=== PATIENT | male | born 1955 ===

== ENCOUNTER 2021-03-01 07:55 | Outpatient (CLI) | payer OTHER | END 2021-03-01 07:59 | disposition home or self-care (01) | LOC: NUCLEAR 07:55 | PROVIDERS: ATTEND Internal Medicine Cardiovascular Disease | DX: I25.10 Atherosclerotic heart disease of native coronary artery without angina pectoris (principal); R06.00 Dyspnea, unspecified; E11.9 Type 2 diabetes mellitus without complications; I10 Essential (primary) hypertension | CPT/HCPCS: 78452; 93017; A9500 ==